=== PATIENT | male | born 1985 ===

== ENCOUNTER 2024-10-11 08:30 | Outpatient (CLI) | payer OTHER, SELFPAY ==
--- NOTE | ~2024-10-11 | MR_ITS ---
EXAMINATION: MR shoulder RT wo con DATE: 10/11/2024 09:06 INDICATION: Right shoulder pain post injury TECHNIQUE: Magnetic resonance imaging (MRI) of the right shoulder was performed without intravenous contrast. Sequences included axial PD-weighted FS FSE, coronal oblique PD-weighted FS FSE, coronal oblique T2-weighted FS FSE, sagittal PD-weighted FS FSE, and sagittal T1-weighted SE. COMPARISON: None. FINDINGS: Coracoacromial arch: The acromion undersurface is curved in morphology (type II). The coracoacromial ligament is normal. Moderate acromioclavicular osteoarthritis. Rotator cuff: Mild supraspinatus tendinopathy with small tear extending 1 cm AP along the superior facet footplate of the tendon which appears to involve up to one half of the tendon thickness. There is no evident retraction of the bursal side of the tendon suggests this is primarily if not excessively intrasubstance although fraying or small perforation of the bursal surface cannot excluded. The infraspinatus and teres minor tendons are normal. Mild subscapularis tendinopathy without tear. Normal rotator cuff muscle bulk and signal. Biceps tendon, glenoid labrum and glenohumeral cartilage: Long head of the biceps tendon is normal. Amorphous increased signal consistent with degenerative tearing of the posterior superior glenoid labrum. Glenohumeral cartilage is normal. Fluid: Physiologic amount of fluid in the glenohumeral joint and biceps tendon sheath. No loose osteochondral bodies. Small amount of fluid in the subacromial/subdeltoid bursa consistent with mild bursitis. Bones: No fracture or pathologic marrow replacing process. There are cystic change at the greater tuberosity likely related to rotator cuff disease as well as at both sides of the acromioclavicular joint space. IMPRESSION: 1. Mild supraspinatus tendinopathy with small moderate severity intrasubstance tear along the superior facet footplate. 2. Mild degenerative tearing of the posterior superior glenoid labrum. 3. Moderate acromioclavicular osteoarthritis. 4. Mild subacromial/subdeltoid bursitis. Reviewed, dictated and finalized at location A.
--- NOTE | ~2024-10-11 | MR_ITS ---
EXAMINATION: MR shoulder LT wo con DATE: 10/11/2024 09:20 INDICATION: Left shoulder pain TECHNIQUE: Magnetic resonance imaging (MRI) of the left shoulder was performed without intravenous contrast. Sequences included axial PD-weighted FS FSE, coronal oblique PD-weighted FS FSE, coronal oblique T2-weighted FS FSE, sagittal PD-weighted FS FSE, and sagittal T1-weighted SE. COMPARISON: None. FINDINGS: Coracoacromial arch: The acromion undersurface is minimally curved in morphology (type I-II) with small anterior subacromial spur. The coracoacromial ligament is normal. Moderate acromioclavicular osteoarthritis. Rotator cuff: The supraspinatus, infraspinatus and teres minor tendons are normal. Mild subscapularis tendinopathy without discrete tear. Normal rotator cuff muscle bulk and signal. Biceps tendon, glenoid labrum and glenohumeral cartilage: Long head of the biceps tendon is normal. There is amorphous increased signal consistent with degenerative tearing of the posterior superior glenoid labrum. There is a linear tear extending from the 9:00 position of the posterior glenoid labrum 5:00 position of the anteroinferior labrum with tiny paralabral cyst at the 9:00 position of the glenoid. Glenohumeral cartilage is normal. Fluid: Small amount of fluid in the long head biceps tendon sheath which is disproportionate to the physiologic amount fluid in the glenohumeral joint consistent with mild bicipital tenosynovitis.. No loose osteochondral bodies. No abnormal increased fluid signal in the subacromial/subdeltoid bursa to sugges t bursitis. Bones/other: Bone alignment is normal. No fracture or pathologic marrow replacing process. There is thickening of the biceps timmy sling with loss of the normal T1 fat signal at the rotator cuff interval which could represent scarring related chronic partial tear of the biceps timmy sling which also be seen in the setting of adhesive capsulitis which is a clinical diagnosis. IMPRESSION: 1. 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 2. Mild subscapularis tendinopathy without discrete tear. 3. Mild bicipital tenosynovitis with thickening of the biceps timmy sling at the rotator cuff interval which could represent scarring related chronic partial tear but which can also be seen in the setting of adhesive capsulitis which is ultimately a clinical diagnosis. 4. Moderate acromioclavicular osteoarthritis. Reviewed, dictated and finalized at location A. IMPRESSION: 1. Degenerative tearing of the posterior superior glenoid labrum with more well -defined tear extending from the 9:00 position of the posterior glenoid labrum to the 5:00 position of the anteroinferior labrum. 2. Mild subscapularis tendinopathy without discrete tear. 3. Mild bicipital tenosynovitis with thickening of the biceps timmy sling at t he rotator cuff interval which could represent scarring related chronic partial tear but which can also be seen in the setting of adhesive capsulitis which is ultimately a clinical diagnosis. 4. Moderate acromioclavicular osteoarthritis.
== END 2024-10-11 08:31 | disposition home or self-care (01) ==
PROVIDERS: PCP Family Medicine Sports Medicine; Visit Provider Family Medicine Sports Medicine
DX: T14.90XA Injury, unspecified, initial encounter (principal); M75.22 Bicipital tendinitis, left shoulder; M19.012 Primary osteoarthritis, left shoulder; M19.011 Primary osteoarthritis, right shoulder; M75.51 Bursitis of right shoulder
CPT/HCPCS: 73221